=== PATIENT | male | born 1995 | race Two or more races ===

== ENCOUNTER 2018-09-06 12:56 | Emergency (ER) | payer MEDICAID ==
[~2018-09-06] VITALS: Ht 188 cm; Wt 79.8 kg
[2018-09-06 12:56] VITALS: BP 129/63
--- NOTE | 2018-09-06 13:24 | NUR ---
CALVIN KIMBALL AT BEDSIDE FOR EVAL.
--- NOTE | 2018-09-06 13:40 | NUR ---
Patient discharged to home in stable condition. Written and verbal after care instructions given. Patient verbalizes understanding of instruction.
== END 2018-09-06 13:41 | disposition home or self-care (01) ==
LOC: ER 13:02
DX: M79.10 Myalgia, unspecified site (principal)
CPT/HCPCS: Z7502